=== PATIENT | male | born 1975 | race Hispanic/Latino ===

== ENCOUNTER → 2024-09-23 | Day surgery (SDC) | payer BC, OTHER ==
[~2024-09-23] MED LIST: DICYCLOMINE HCL10 MG PO; GLUCAGON FOR INJ 1 MG VIAL ONE; HYOSCYAMINE SULFATE 0.5 MG/ML INJ ONE; LACTATED RINGER'S 1,000 ML ONE; LIDOCAINE HCL 2% LOCAL INJ 5 ML SDV VIAL INJ ONE; MIDAZOLAM HCL 2 MG/2 ML VIAL ONE; PROPOFOL IV EMULSION 10 MG/ML 20 ML VIAL ONE
[2024-09-23 13:44] VITALS: TEMP 97.9
[2024-09-23 14:10] VITALS: BP 120/75; PULSE 69; RESP 14; O2SAT 96
== END | disposition home or self-care (01) ==
LOC: OR 10:46
PROVIDERS: ATTEND Internal Medicine Gastroenterology
DX: K62.89 Other specified diseases of anus and rectum (principal); K63.89 Other specified diseases of intestine; K57.30 Diverticulosis of large intestine without perforation or abscess without bleeding; K64.8 Other hemorrhoids; R03.0 Elevated blood-pressure reading, without diagnosis of hypertension; Z71.89 Other specified counseling; Z68.28 Body mass index [BMI] 28.0-28.9, adult; Z71.3 Dietary counseling and surveillance
CPT/HCPCS: 45380; 86140; J1610; J1980; J2003; J2250; J2704; J7121; 45378